=== PATIENT | male | born 1955 | race Caucasian/White ===

== ENCOUNTER 2016-05-31 09:32 | Inpatient (IN) | payer OTHER ==
[~2016-05-31] VITALS: Ht 182.9 cm; Wt 134.2 kg
[~2016-05-31 09:32] MED LIST: ADVAIR 250/501 DISK IH; AMBIEN10 M1 PO; ATORVASTATIN CA40 MG PO; ATROVENT H200 INHALA IH; CARDIZEM CD,CA180 MG PO; CARDIZEM CD240 MG PO; CARTIA XT240 MG PO; COMBIVENT200 INHALA IH; COUMADIN,JANTOVE5 MG PO; COUMADIN3 MG PO; COUMADIN5 MG PO; CYANOCOBALAM1000 MCG PO; Cardizem CD,Cartia X PO; DESYREL100 MG PO; DIGOXIN250 MCG PO; DOCUSATE SODIU100 MG PO; ENALAPRIL MALEA20 M1 PO; ENALAPRIL MALEA20 MG PO; FLOMAX0.4 MG PO; FLUCONAZOLE100 MG PO; FUROSEMIDE20 MG PO; GEMFIBROZIL600 MG PO; GLUCOPHAGE1000 MG PO; GLYNASE6 MG PO; HALOBETASOL PRO15 GM TP; HYDROCODON-ACE1 EAC7 PO; HYDROCODON-ACE1 EAC9 PO; KENALOG,ARISTOC15 G2 TP; LANOXIN,DIGI0.125 MG PO; LANTUS 10100 UNITS/ SC; LANTUS 3 M100 UNITS1 SC; LASIX40 MG PO; LEVAQUIN750 MG PO; LEVEMIR100 UNIT/2 SC; LIPITOR10 MG PO; LOVENOX40 MG/0.4 SC; METFORMIN HCL500 MG PO; NEURONTIN300 MG PO; NOVOLOG 10100 UNITS/ SC; NOVOLOG MI100 UNIT/4 SC; NOVOLOG PE100 UNITS/ SC; PERCOCET 5/31 TABLET PO; PREDNISONE10 MG PO; WELLBUTRIN XL150 MG PO; ZOFRAN ODT4 MG PO; Zeasorb Antifungal T TP
[2016-05-31 10:18] LABS: HEMATOCRIT 31.3 % (38.0-50.0); MCH 35.5 PG (29.0-34.0); MCHC 35.1 G/DL (30.0-36.0); MEAN PLAT.VOLUME 9.1 uM^3 (9.0-12.4); PLATELET COUNT 160 K/uL (156-360); RBC DIS.WIDTH-CV 14.9 % (11.8-14.6); RBC DIS.WIDTH-SD 52.8 % (39-53)
[2016-05-31 10:24] LABS: CHLORIDE 91 mEq/L (99-109)
[2016-05-31 10:25] LABS: POTASSIUM 5.1 mEq/L (3.7-5.4); SODIUM 127 mEq/L (136-147); WHITE BLOOD COUNT 10.4 K/uL (4.1-10.2)
[2016-05-31 10:26] LABS: GLUCOSE 95 mg/dL (70-99)
[2016-05-31 10:27] LABS: ANION GAP 14 MEQ/L (2-14)
[2016-05-31 10:30] LABS: GFR ESTIMATE (CALCULATED) 13 mL/min/
[2016-05-31 10:31] LABS: UREA NITROGEN (BUN) 76 mg/dL (9-23)
[2016-05-31 10:36] LABS: TROP-I INTERPRETATION NEGATIVE; TROPONIN-I 0.05 ng/mL (0.0-0.30)
[2016-05-31] MEDS ORDERED: LIPITOR40 MG PO (11:38)
[2016-05-31] MEDS ORDERED: LASIX80 MG PO (11:40)
[2016-05-31] MEDS ORDERED: PRINIVIL20 MG PO (11:41)
[2016-05-31] MEDS ORDERED: ADVAIR 250/501 DISK IH (11:43)
[2016-05-31] MEDS ORDERED: HUMALOG100 UNIT/2 SC (11:48)
[2016-05-31] MEDS ORDERED: TUMS500 MG PO (11:52)
[2016-05-31] MEDS ORDERED: TYLENOL REGULA325 MG PO (11:53)
[2016-05-31] MEDS ORDERED: ZEASORB-AF70 G1 TP (11:57)
[2016-05-31 17:04] LABS: POINT-OF-CARE METER ID UU13113698; POINT-OF-CARE USER ID NUTSLF44
[2016-05-31 17:10] VITALS: BP 102/44
[2016-05-31 17:23] LABS: INTER. NORMALIZED RATIO 2.7; PROTHROMBIN TIME 28.1 (9.2-11.2)
[2016-05-31 19:22] VITALS: BP 93/52
[2016-05-31 22:11] LABS: POINT-OF-CARE METER ID UU13113698
[2016-05-31 23:49] VITALS: BP 98/54
[2016-06-01 03:16] VITALS: BP 95/50
[2016-06-01 07:07] LABS: EOSINOPHIL (%) 1.3 % (0-5); EOSINOPHIL COUNT 0.1 K/uL (0-0.3); HEMATOCRIT 29.3 % (38.0-50.0); IMMATURE GRANULOCYTE (%) 0.3 % (0.0-0.7); IMMATURE GRANULOCYTE COUNT 0.2 K/uL; LYMPHOCYTE COUNT 0.8 K/uL (1.0-2.8); MCH 35.5 PG (29.0-34.0); MCHC 35.2 G/DL (30.0-36.0); MONOCYTE (%) 5.3 % (3-12); MONOCYTE COUNT 0.3 K/uL (0-0.8); NEUTROPHIL (%) 79.9 % (45-76); NEUTROPHIL COUNT 4.9 K/uL (1.8-6.4); RBC DIS.WIDTH-CV 14.8 % (11.8-14.6); RBC DIS.WIDTH-SD 52.4 % (39-53)
[2016-06-01 07:15] VITALS: BP 96/53
[2016-06-01 07:16] LABS: MEAN PLAT.VOLUME 9.1 uM^3 (9.0-12.4); PLATELET COUNT 144 K/uL (156-360)
[2016-06-01 07:21] LABS: WHITE BLOOD COUNT 6.1 K/uL (4.1-10.2)
[2016-06-01 07:48] LABS: ALKALINE PHOSPHATASE 83 IU/L (3-129); ANION GAP 12 MEQ/L (2-14); CHLORIDE 99 MEQ/L (99-109); GLUCOSE 73 mg/dL (70-99); MAGNESIUM 1.6 mg/dl (1.3-2.7); POTASSIUM 4.1 MEQ/L (3.7-5.4); SAMPLE HEMOLYSIS CHECK 0; SAMPLE ICTERIC CHECK 0; SAMPLE LIPEMIA CHECK 0; UREA NITROGEN (BUN) 67 mg/dL (9-23)
[2016-06-01 07:57] LABS: GFR ESTIMATE (CALCULATED) 31 mL/min/; SODIUM 136 MEQ/L (136-147); VANCOMYCIN, TROUGH 11.3 MCG/ML (10-20)
[2016-06-01 07:59] LABS: INTER. NORMALIZED RATIO 3.3; PROTHROMBIN TIME 35.4 (9.2-11.2)
[2016-06-01 11:30] VITALS: BP 125/59
[2016-06-01 12:22] LABS: POINT-OF-CARE METER ID UU13113698
[2016-06-01 15:30] VITALS: BP 126/64
[2016-06-01 19:00] VITALS: BP 129/59
[2016-06-01 23:46] VITALS: BP 139/70
[2016-06-02 02:22] VITALS: BP 137/72
[2016-06-02 06:35] LABS: MEAN PLAT.VOLUME 9.5 uM^3 (9.0-12.4); PLATELET COUNT 153 K/uL (156-360)
[2016-06-02 06:45] LABS: EOSINOPHIL (%) 0.9 % (0-5); IMMATURE GRANULOCYTE (%) 0.9 % (0.0-0.7); LYMPHOCYTE COUNT 0.5 K/uL (1.0-2.8); MCH 33.7 PG (29.0-34.0); MCHC 32.9 G/DL (30.0-36.0); MCV 102.3 FL (86-99); MONOCYTE (%) 7.3 % (3-12); MONOCYTE COUNT 0.3 K/uL (0-0.8); NEUTROPHIL (%) 79.6 % (45-76); NEUTROPHIL COUNT 3.6 K/uL (1.8-6.4); RBC DIS.WIDTH-CV 14.8 % (11.8-14.6); RBC DIS.WIDTH-SD 54.6 % (39-53); RED BLOOD COUNT 3.03 M/uL (4.00-5.50); WHITE BLOOD COUNT 4.5 K/uL (4.1-10.2)
[2016-06-02 06:49] LABS: INTER. NORMALIZED RATIO 2.6; PROTHROMBIN TIME 26.9 (9.2-11.2)
[2016-06-02 07:13] LABS: ANION GAP 12 MEQ/L (2-14); CHLORIDE 103 MEQ/L (99-109); MAGNESIUM 1.6 mg/dl (1.3-2.7); POTASSIUM 4.1 MEQ/L (3.7-5.4); SAMPLE HEMOLYSIS CHECK 0; SAMPLE ICTERIC CHECK 0; SAMPLE LIPEMIA CHECK 0; SODIUM 140 MEQ/L (136-147); UREA NITROGEN (BUN) 40 mg/dL (9-23)
[2016-06-02 07:16] LABS: GFR ESTIMATE (CALCULATED) > 59 mL/min/; GLUCOSE 130 mg/dL (70-99)
[2016-06-02 07:43] LABS: HEMATOLOGY COMMENT 1 SMEAR COMPATIBLE; PLAT.SUFFICIENCY ADEQUATE
[2016-06-02 08:08] LABS: DIGOXIN 0.8 ng/mL (0.8-2.0)
[2016-06-02 10:10] VITALS: BP 95/55
[2016-06-02 12:39] VITALS: BP 115/67
[2016-06-02 16:55] VITALS: BP 138/85
[2016-06-02 20:01] VITALS: BP 143/65
[2016-06-02 23:10] VITALS: BP 137/82
[2016-06-03 04:41] VITALS: BP 135/70
[2016-06-03 07:09] LABS: PROTHROMBIN TIME 20.7 (9.2-11.2)
[2016-06-03 07:20] VITALS: BP 152/73
[2016-06-03 07:35] LABS: POINT-OF-CARE USER ID ENVKC36
[2016-06-03 10:00] VITALS: BP 96/65
[2016-06-03 12:16] LABS: POINT-OF-CARE METER ID UU13113725
[2016-06-03 15:27] VITALS: BP 161/74
[2016-06-03 16:12] LABS: POINT-OF-CARE METER ID UU13113725
[2016-06-03 21:24] LABS: POINT-OF-CARE METER ID UU13113725
[2016-06-03 22:57] VITALS: BP 140/75
[2016-06-04 06:04] LABS: POINT-OF-CARE METER ID UU13113717
[2016-06-04 06:17] LABS: INTER. NORMALIZED RATIO 1.9; PROTHROMBIN TIME 20.2 (9.2-11.2)
[2016-06-04 07:40] VITALS: BP 90/48
[2016-06-04 16:27] LABS: POINT-OF-CARE METER ID UU13113717
[2016-06-04 16:32] VITALS: BP 156/72
[2016-06-04 21:31] LABS: POINT-OF-CARE METER ID UU13113725
[2016-06-04 23:30] VITALS: BP 158/86
[2016-06-05 06:30] LABS: POINT-OF-CARE METER ID UU13113725
[2016-06-05 06:48] LABS: INTER. NORMALIZED RATIO 2.2; PROTHROMBIN TIME 22.8 (9.2-11.2)
[2016-06-05 08:44] VITALS: BP 165/96
[2016-06-05 11:31] LABS: POINT-OF-CARE METER ID UU13113717
[2016-06-05 16:21] VITALS: BP 133/71
[2016-06-05 16:32] LABS: POINT-OF-CARE METER ID UU13113725
[2016-06-05 20:39] VITALS: BP 132/77
[2016-06-05 23:35] VITALS: BP 143/79
[2016-06-06 06:23] LABS: POINT-OF-CARE METER ID UU13113725
[2016-06-06 06:34] LABS: PROTHROMBIN TIME 21.1 (9.2-11.2)
[2016-06-06 07:16] VITALS: BP 150/70
[2016-06-06 11:54] LABS: POINT-OF-CARE METER ID UU13113725
[2016-06-06] MEDS ORDERED: DIGOX250 MCG PO (15:12)
[2016-06-06 15:13] VITALS: BP 118/78
[2016-06-06] MEDS ORDERED: COUMADIN3 MG PO (15:13)
[2016-06-06] MEDS ORDERED: CARTIA XT240 MG PO (15:14)
[2016-06-06] MEDS ORDERED: LISINOPRIL5 MG PO (15:16)
[2016-06-06] MEDS ORDERED: CEFTIN500 MG PO (15:17)
[2016-06-06 15:46] LABS: POINT-OF-CARE METER ID UU13113725
== END 2016-06-06 17:59 | DRG 871 ==
LOC: EME 09:32 → 4EAST 14:00 → EDOF 14:00 → 5EAST 14:00 → EDOF 14:09 → 4EAST 16:21 → 5EAST 06-03 09:55
PROVIDERS: Emergency Medicine; Internal Medicine; Internal Medicine Nephrology
DX: A41.9 Sepsis, unspecified organism (principal); J18.9 Pneumonia, unspecified organism; N17.0 Acute kidney failure with tubular necrosis; I50.30 Unspecified diastolic (congestive) heart failure; J44.0 Chronic obstructive pulmonary disease with (acute) lower respiratory infection; E87.2 Acidosis; Z68.41 Body mass index [BMI] 40.0-44.9, adult; E87.1 Hypo-osmolality and hyponatremia; I48.2 Chronic atrial fibrillation; E11.9 Type 2 diabetes mellitus without complications; E66.01 Morbid (severe) obesity due to excess calories; G47.33 Obstructive sleep apnea (adult) (pediatric); I95.9 Hypotension, unspecified; F32.9 Major depressive disorder, single episode, unspecified; M25.552 Pain in left hip; M25.551 Pain in right hip; Z87.891 Personal history of nicotine dependence; Z79.01 Long term (current) use of anticoagulants; Z79.4 Long term (current) use of insulin; Z88.1 Allergy status to other antibiotic agents; Z88.2 Allergy status to sulfonamides
CPT/HCPCS: 71010; 76770; 80048; 80053; 80069; 80162; 80202; 81003; 82533 91; 82570; 82948; 83605; 83735; 83880; 83935; 84100; 84156; 84300; 84484; 84550; 85025; 85027; 85610; 87040; 93005; 93306; 94640; 94640 76; 94799; 97530 GO; 97530 GP; 99202; 99281; 99285; J0456; J0696; J1720; J1815; J2543; J2920; J3370; J7030; J7050; J7512

== ENCOUNTER 2016-10-29 11:05 | Inpatient (IN) | payer OTHER ==
[~2016-10-29] VITALS: Ht 182.9 cm; Wt 118.9 kg
[~2016-10-29 11:05] MED LIST changes: +CEFTIN500 MG PO; +DIGOX250 MCG PO; +HUMALOG100 UNIT/2 SC; +LASIX80 MG PO; +LIPITOR40 MG PO; +LISINOPRIL5 MG PO; +PRINIVIL20 MG PO; +TUMS500 MG PO; +TYLENOL REGULA325 MG PO; +ZEASORB-AF70 G1 TP
[2016-10-29 13:36] LABS: ADD MIUA? YES; BILIRUBIN NEGATIVE; BLOOD MODERATE; COLOR YELLOW ((YELLOW)); GLUCOSE (STRIP) NEGATIVE; KETONES NEGATIVE; LEUKOCYTES LARGE; NITRITE POSITIVE; PROTEIN (STRIP) 30; SPECIFIC GRAVITY 1.013 (1.000-1.030)
[2016-10-29 13:50] LABS: BACTERIA RARE /HPF; EPITHELIAL CELLS 1+ /HPF; MUCUS TRACE /LPF; RED BLOOD CELLS 15-20 /HPF (0-5); UCUL ADDED? YES; WHITE BLOOD CELLS TNTC /HPF (0-5)
[2016-10-29 14:01] LABS: HEMATOCRIT 36.4 % (38.0-50.0); MCHC 33.8 G/DL (30.0-36.0); MCV 103.7 FL (86-99); PLATELET COUNT 127 K/uL (156-360); RBC DIS.WIDTH-CV 14.1 % (11.8-14.6); RBC DIS.WIDTH-SD 53.6 % (39-53); RED BLOOD COUNT 3.51 M/uL (4.00-5.50); WHITE BLOOD COUNT 9.9 K/uL (4.1-10.2)
[2016-10-29 14:11] LABS: CHLORIDE 106 mEq/L (99-109); POTASSIUM 4.2 mEq/L (3.7-5.4); SODIUM 137 mEq/L (136-147)
[2016-10-29 14:13] LABS: GLUCOSE 104 mg/dL (70-99)
[2016-10-29 14:14] LABS: ANION GAP 9 MEQ/L (2-14)
[2016-10-29 14:16] LABS: GFR ESTIMATE (CALCULATED) > 59 mL/min/
[2016-10-29 14:17] LABS: UREA NITROGEN (BUN) 26 mg/dL (9-23)
[2016-10-29] MEDS ORDERED: COUMADIN6 MG PO (15:53)
[2016-10-29] MEDS ORDERED: CARDIZEM CD,CA240 MG PO ×2 (15:54→17:18)
[2016-10-29] MEDS ORDERED: HYDROCODON-ACE1 EAC9 PO (15:55)
[2016-10-29] MEDS ORDERED: TRAZODONE HCL50 MG PO (15:56)
[2016-10-29 16:31] LABS: INTER. NORMALIZED RATIO 3.2; PROTHROMBIN TIME 34.1 (9.2-11.2)
[2016-10-29] MEDS ORDERED: DIGITEK250 MC2 PO (17:18)
[2016-10-29] MEDS ORDERED: PRINIVIL5 MG PO (17:19)
[2016-10-29] MEDS ORDERED: FOLIC ACID1 MG PO (17:19)
[2016-10-29] MEDS ORDERED: DULCOLAX10 MG PR (17:22)
[2016-10-29] MEDS ORDERED: FLEET MINERAL133 ML PR (17:23)
[2016-10-29] MEDS ORDERED: MILK OF MAGN PO (17:23)
[2016-10-29 18:35] VITALS: BP 127/60
[2016-10-29 18:54] LABS: POINT-OF-CARE METER ID UU14162508
[2016-10-29 20:42] VITALS: BP 132/73
[2016-10-29 22:16] LABS: POINT-OF-CARE METER ID UU14162508
[2016-10-30] VITALS (8 sets, daily range): BP systolic 101–126; BP diastolic 57–82
[2016-10-30 06:45] LABS: POINT-OF-CARE METER ID UU14162508
[2016-10-30 06:47] LABS: INTER. NORMALIZED RATIO 3.2; PROTHROMBIN TIME 33.4 (9.2-11.2)
[2016-10-30 11:05] LABS: POINT-OF-CARE METER ID UU14162508
[2016-10-30 13:28] LABS: POINT-OF-CARE METER ID UU13113675; POINT-OF-CARE USER ID 515036437
[2016-10-30 16:29] LABS: POINT-OF-CARE METER ID UU14162508; POINT-OF-CARE USER ID PUTDRM
[2016-10-31 07:30] LABS: INTER. NORMALIZED RATIO 2.8; PROTHROMBIN TIME 29.3 (9.2-11.2)
[2016-10-31 09:15] VITALS: BP 114/56
[2016-10-31 12:00] VITALS: BP 112/58
[2016-10-31 16:00] VITALS: BP 116/64
[2016-11-01 00:02] VITALS: BP 121/62
[2016-11-01 06:47] LABS: POINT-OF-CARE METER ID UU14162508
[2016-11-01 07:12] LABS: PROTHROMBIN TIME 20.6 (9.2-11.2)
[2016-11-01 08:00] VITALS: BP 138/87
[2016-11-01 16:00] VITALS: BP 167/94
[2016-11-01 21:14] LABS: POINT-OF-CARE METER ID UU14162508
[2016-11-02 07:10] VITALS: BP 139/84
[2016-11-02 07:13] LABS: INTER. NORMALIZED RATIO 2.3; PROTHROMBIN TIME 23.6 (9.2-11.2)
[2016-11-02 07:19] LABS: ANION GAP 6 MEQ/L (2-14); CHLORIDE 105 MEQ/L (99-109); GFR ESTIMATE (CALCULATED) > 59 mL/min/; GLUCOSE 74 mg/dL (70-99); POTASSIUM 3.6 MEQ/L (3.7-5.4); SAMPLE HEMOLYSIS CHECK 0; SAMPLE ICTERIC CHECK 0; SAMPLE LIPEMIA CHECK 0; SODIUM 139 MEQ/L (136-147); UREA NITROGEN (BUN) 16 mg/dL (9-23)
[2016-11-02 08:14] LABS: POINT-OF-CARE METER ID UU14162508
[2016-11-02 11:31] LABS: POINT-OF-CARE METER ID UU14162508
[2016-11-02 16:39] VITALS: BP 125/81
[2016-11-03 00:41] VITALS: BP 154/79
[2016-11-03 07:19] LABS: INTER. NORMALIZED RATIO 2.4; PROTHROMBIN TIME 25.6 (9.2-11.2)
[2016-11-03 08:01] VITALS: BP 133/88
[2016-11-03] MEDS ORDERED: CIPRO500 MG PO (08:30)
== END 2016-11-03 12:15 | DRG 872 ==
LOC: EME 11:05 → EDOF 15:30 → 2EAST 15:30
PROVIDERS: Emergency Medicine; Internal Medicine
DX: A41.59 Other Gram-negative sepsis (principal); E11.622 Type 2 diabetes mellitus with other skin ulcer; I11.0 Hypertensive heart disease with heart failure; I50.32 Chronic diastolic (congestive) heart failure; E66.01 Morbid (severe) obesity due to excess calories; G47.33 Obstructive sleep apnea (adult) (pediatric); I48.2 Chronic atrial fibrillation; L97.909 Non-pressure chronic ulcer of unspecified part of unspecified lower leg with unspecified severity; J44.9 Chronic obstructive pulmonary disease, unspecified; N13.6 Pyonephrosis; N30.90 Cystitis, unspecified without hematuria; N47.1 Phimosis; Z68.35 Body mass index [BMI] 35.0-35.9, adult; Z79.01 Long term (current) use of anticoagulants; Z87.442 Personal history of urinary calculi; Z87.891 Personal history of nicotine dependence; R45.4 Irritability and anger; I87.2 Venous insufficiency (chronic) (peripheral); L89.899 Pressure ulcer of other site, unspecified stage
CPT/HCPCS: 74000; 74176; 80048; 81003; 82948; 85027; 85610; 87040; 87077; 87086; 87186; 87801; 94640 76; 97530 GP; 99281; 99285; C1769; C1876; J0696; J1100; J1815; J2250; J2405; J3010; J7030; J7050

== ENCOUNTER → 2016-11-20 | Outpatient (CLI) | payer OTHER ==
[~2016-11-20] VITALS: Ht 177.8 cm; Wt 116.6 kg
[~2016-11-20] MED LIST changes: +CARDIZEM CD,CA240 MG PO; +CIPRO500 MG PO; +COUMADIN6 MG PO; +DIGITEK250 MC2 PO; +DULCOLAX10 MG PR; +FLEET MINERAL133 ML PR; +FOLIC ACID1 MG PO; +MILK OF MAGN PO; +NIZORAL 2% CREA15 GM TP; +OLUX-E 0.05% FO50 GM TP; +PRINIVIL5 MG PO; +TRAZODONE HCL50 MG PO; +VITAMIN B-122000 MCG PO
[2016-11-20 08:39] LABS: POINT-OF-CARE METER ID UU14174212
[2016-11-20 09:10] LABS: INTER. NORMALIZED RATIO 1.5; PROTHROMBIN TIME 15.7 (9.2-11.2); PTT 29.3 (25-32)
== END ==
LOC: AMB 07:29
PROVIDERS: Anesthesiology; Urology
PROC: 0TF6XZZ Fragmentation in Right Ureter, External Approach (ICD-10-PCS; principal; 2016-11-20)
DX: N20.1 Calculus of ureter (principal); I48.91 Unspecified atrial fibrillation; I10 Essential (primary) hypertension; E11.9 Type 2 diabetes mellitus without complications; Z79.01 Long term (current) use of anticoagulants
CPT/HCPCS: 82948; 85610; 85730; J0696; J1100; J1170; J1885; J2250; J2405; J7050; J7120

== ENCOUNTER 2016-12-01 19:01 | Inpatient (IN) | payer OTHER ==
[~2016-12-01] VITALS: Ht 182.9 cm; Wt 101.2 kg
[2016-12-01 21:24] LABS: EOSINOPHIL (%) 1.6 % (0-5); EOSINOPHIL COUNT 0.1 K/uL (0-0.3); HEMATOCRIT 28.1 % (38.0-50.0); IMMATURE GRANULOCYTE (%) 0.7 % (0.0-0.7); INSTRUMENT ABS NEUTROPHIL CT 4.3 K/uL; LYMPHOCYTE COUNT 0.8 K/uL (1.0-2.8); MCH 33.7 PG (29.0-34.0); MCHC 32.7 G/DL (30.0-36.0); MEAN PLAT.VOLUME 8.8 uM^3 (9.0-12.4); MONOCYTE (%) 5.9 % (3-12); MONOCYTE COUNT 0.3 K/uL (0-0.8); NEUTROPHIL (%) 77.2 % (45-76); NEUTROPHIL COUNT 4.3 K/uL (1.8-6.4); PLATELET COUNT 243 K/uL (156-360); RBC DIS.WIDTH-CV 14.2 % (11.8-14.6); RBC DIS.WIDTH-SD 53.4 % (39-53); RED BLOOD COUNT 2.73 M/uL (4.00-5.50); WHITE BLOOD COUNT 5.6 K/uL (4.1-10.2)
[2016-12-01 21:29] LABS: MCV 102.9 FL (86-99)
[2016-12-01 21:34] LABS: CHLORIDE 102 mEq/L (99-109); POTASSIUM 4.8 mEq/L (3.7-5.4); SODIUM 134 mEq/L (136-147)
[2016-12-01 21:35] LABS: GLUCOSE 110 mg/dL (70-99)
[2016-12-01 21:36] LABS: ANION GAP 10 MEQ/L (2-14)
[2016-12-01 21:37] LABS: TOTAL BILIRUBIN 1.3 mg/dL (0.0-1.0)
[2016-12-01 21:38] LABS: ALKALINE PHOSPHATASE 280 IU/L (3-129); GFR ESTIMATE (CALCULATED) > 59 mL/min/
[2016-12-01 21:40] LABS: UREA NITROGEN (BUN) 26 mg/dL (9-23)
[2016-12-01 21:49] LABS: INTER. NORMALIZED RATIO 2.1; PROTHROMBIN TIME 22.4 (9.2-11.2)
[2016-12-02 01:18] VITALS: BP 125/71
[2016-12-02 02:17] LABS: ADD MIUA? YES; BILIRUBIN NEGATIVE; BLOOD MODERATE; COLOR YELLOW ((YELLOW)); GLUCOSE (STRIP) NEGATIVE; KETONES NEGATIVE; LEUKOCYTES LARGE; NITRITE POSITIVE; PROTEIN (STRIP) 30; SPECIFIC GRAVITY 1.013 (1.000-1.030)
[2016-12-02 02:59] LABS: BACTERIA 3+ /HPF; CASTS NONE SEEN /LPF; CRYSTALS NONE SEEN; EPITHELIAL CELLS RARE /HPF; MUCUS NONE SEEN /LPF; RED BLOOD CELLS 0-5 /HPF (0-5); UCUL ADDED? YES; WHITE BLOOD CELLS TNTC /HPF (0-5)
[2016-12-02 07:12] LABS: ALKALINE PHOSPHATASE 245 IU/L (3-129); ANION GAP 7 MEQ/L (2-14); CHLORIDE 102 MEQ/L (99-109); GFR ESTIMATE (CALCULATED) > 59 mL/min/; MAGNESIUM 1.8 mg/dl (1.3-2.7); POTASSIUM 4.4 MEQ/L (3.7-5.4); SAMPLE HEMOLYSIS CHECK 0; SAMPLE ICTERIC CHECK 0; SAMPLE LIPEMIA CHECK 0; SODIUM 136 MEQ/L (136-147); TOTAL BILIRUBIN 1.3 MG/DL (0.0-1.0); UREA NITROGEN (BUN) 22 mg/dL (9-23)
[2016-12-02 07:31] LABS: GLUCOSE 74 mg/dL (70-99)
[2016-12-02 07:32] LABS: HEMATOCRIT 28.1 % (38.0-50.0); MCV 105.6 FL (86-99)
[2016-12-02 08:29] VITALS: BP 125/68
[2016-12-02 11:42] LABS: IMM.RETIC FRACTION 9.7 % (3-19); RETICULOCYTE COUNT 1.4 % (0.5-1.8)
[2016-12-02 12:13] LABS: HBSG INDEX 0.22; HPCA INDEX 0.26
[2016-12-02 12:14] LABS: ANTI-HEPATITIS A VIRUS (IGM) Nonreactive; HAV INDEX 0.14
[2016-12-02 12:15] LABS: ANTI-HEPATITIS B CORE (IGM) Nonreactive; HBC IgM INDEX 0.09
[2016-12-02 12:37] LABS: IRON 57 MCG/DL (35-150)
[2016-12-02 13:53] LABS: FERRITIN 434 NG/ML (22-322)
[2016-12-02] MEDS ORDERED: CYANOCOBALAM1000 MCG PO (14:20)
[2016-12-02 14:31] VITALS: BP 116/56
[2016-12-02 18:07] LABS: MCV 105.3 FL (86-99)
[2016-12-02 20:03] VITALS: BP 117/52
[2016-12-02 23:57] VITALS: BP 129/81
[2016-12-03 06:11] LABS: HEMATOCRIT 26.8 % (38.0-50.0); MCH 33.5 PG (29.0-34.0); MCHC 31.7 G/DL (30.0-36.0); MCV 105.5 FL (86-99); MEAN PLAT.VOLUME 8.8 uM^3 (9.0-12.4); PLATELET COUNT 232 K/uL (156-360); RBC DIS.WIDTH-CV 14.2 % (11.8-14.6); RBC DIS.WIDTH-SD 55.3 % (39-53); RED BLOOD COUNT 2.54 M/uL (4.00-5.50); WHITE BLOOD COUNT 4.9 K/uL (4.1-10.2)
[2016-12-03 06:32] LABS: ALKALINE PHOSPHATASE 226 IU/L (3-129); ANION GAP 7 MEQ/L (2-14); CHLORIDE 102 MEQ/L (99-109); GFR ESTIMATE (CALCULATED) > 59 mL/min/; GLUCOSE 89 mg/dL (70-99); POTASSIUM 4.6 MEQ/L (3.7-5.4); SAMPLE HEMOLYSIS CHECK 0; SAMPLE ICTERIC CHECK 0; SAMPLE LIPEMIA CHECK 0; SODIUM 135 MEQ/L (136-147); TOTAL BILIRUBIN 1.2 MG/DL (0.0-1.0); UREA NITROGEN (BUN) 17 mg/dL (9-23)
[2016-12-03 08:00] VITALS: BP 142/60
[2016-12-03 08:44] LABS: POINT-OF-CARE METER ID UU14188625
[2016-12-03 10:59] LABS: POINT-OF-CARE METER ID UU13113675; POINT-OF-CARE USER ID ADMSLT55
[2016-12-03 12:00] VITALS: BP 146/57
[2016-12-03 12:09] LABS: POINT-OF-CARE METER ID UU14188625
[2016-12-03 16:24] VITALS: BP 119/50
[2016-12-03 16:48] LABS: POINT-OF-CARE METER ID UU13113717
[2016-12-03 21:08] VITALS: BP 122/65
[2016-12-03 22:08] LABS: POINT-OF-CARE METER ID UU13113717
[2016-12-04 00:20] VITALS: BP 121/64
[2016-12-04 05:58] LABS: EOSINOPHIL (%) 0.3 % (0-5); HEMATOCRIT 26.4 % (38.0-50.0); IMMATURE GRANULOCYTE (%) 0.6 % (0.0-0.7); INSTRUMENT ABS NEUTROPHIL CT 5.6 K/uL; LYMPHOCYTE COUNT 0.6 K/uL (1.0-2.8); MCH 34.4 PG (29.0-34.0); MCV 104.3 FL (86-99); MONOCYTE (%) 4.5 % (3-12); MONOCYTE COUNT 0.3 K/uL (0-0.8); NEUTROPHIL (%) 85.8 % (45-76); NEUTROPHIL COUNT 5.6 K/uL (1.8-6.4); PLATELET COUNT 244 K/uL (156-360); RBC DIS.WIDTH-CV 14.2 % (11.8-14.6); RBC DIS.WIDTH-SD 54.4 % (39-53); RED BLOOD COUNT 2.53 M/uL (4.00-5.50); WHITE BLOOD COUNT 6.5 K/uL (4.1-10.2)
[2016-12-04 06:23] LABS: ALKALINE PHOSPHATASE 240 IU/L (3-129); ANION GAP 8 MEQ/L (2-14); CHLORIDE 104 MEQ/L (99-109); GFR ESTIMATE (CALCULATED) > 59 mL/min/; GLUCOSE 128 mg/dL (70-99); POTASSIUM 4.3 MEQ/L (3.7-5.4); SAMPLE HEMOLYSIS CHECK 0; SAMPLE ICTERIC CHECK 0; SAMPLE LIPEMIA CHECK 0; SODIUM 135 MEQ/L (136-147); UREA NITROGEN (BUN) 19 mg/dL (9-23)
[2016-12-04 07:39] VITALS: BP 134/80
[2016-12-04 08:18] LABS: POINT-OF-CARE METER ID UU14188625
[2016-12-04 09:35] LABS: INTER. NORMALIZED RATIO 1.9; PTT 31.8 (25-32)
[2016-12-04 10:43] LABS: HPCA INDEX 0.28
[2016-12-04 12:03] VITALS: BP 120/65
[2016-12-04 12:40] LABS: POINT-OF-CARE METER ID UU14188625
[2016-12-04 14:09] LABS: POINT-OF-CARE METER ID UU14174212
[2016-12-04 15:17] LABS: POINT-OF-CARE METER ID UU13113675
[2016-12-04 16:05] VITALS: BP 140/64
[2016-12-04 16:18] LABS: POINT-OF-CARE METER ID UU13113717
[2016-12-04 19:52] VITALS: BP 113/56
[2016-12-04 23:41] VITALS: BP 132/67
[2016-12-05 04:13] VITALS: BP 111/57
[2016-12-05 05:48] LABS: EOSINOPHIL (%) 1.7 % (0-5); EOSINOPHIL COUNT 0.1 K/uL (0-0.3); IMMATURE GRANULOCYTE (%) 0.2 % (0.0-0.7); MCH 33.6 PG (29.0-34.0); MCHC 31.9 G/DL (30.0-36.0); MCV 105.3 FL (86-99); MEAN PLAT.VOLUME 9.1 uM^3 (9.0-12.4); MONOCYTE (%) 4.5 % (3-12); MONOCYTE COUNT 0.2 K/uL (0-0.8); NEUTROPHIL (%) 74.8 % (45-76); PLATELET COUNT 242 K/uL (156-360); RBC DIS.WIDTH-CV 14.1 % (11.8-14.6); RBC DIS.WIDTH-SD 54.5 % (39-53); RED BLOOD COUNT 2.47 M/uL (4.00-5.50); WHITE BLOOD COUNT 5.3 K/uL (4.1-10.2)
[2016-12-05 06:15] LABS: ALKALINE PHOSPHATASE 216 IU/L (3-129); ANION GAP 7 MEQ/L (2-14); CHLORIDE 107 MEQ/L (99-109); GFR ESTIMATE (CALCULATED) > 59 mL/min/; GLUCOSE 86 mg/dL (70-99); POTASSIUM 4.5 MEQ/L (3.7-5.4); SAMPLE HEMOLYSIS CHECK 1; SAMPLE ICTERIC CHECK 0; SAMPLE LIPEMIA CHECK 0; SODIUM 137 MEQ/L (136-147); TOTAL BILIRUBIN 0.8 MG/DL (0.0-1.0); UREA NITROGEN (BUN) 19 mg/dL (9-23)
[2016-12-05 07:48] VITALS: BP 128/60
[2016-12-05 11:54] VITALS: BP 115/59
[2016-12-05 12:07] LABS: POINT-OF-CARE METER ID UU14188625
[2016-12-05 15:52] VITALS: BP 127/61
[2016-12-05 16:46] LABS: POINT-OF-CARE METER ID UU14188625
[2016-12-05 19:59] VITALS: BP 120/67
[2016-12-05 21:12] LABS: POINT-OF-CARE METER ID UU13113717
[2016-12-05 23:36] VITALS: BP 141/62
[2016-12-06 04:17] VITALS: BP 128/63
[2016-12-06 05:55] LABS: EOSINOPHIL (%) 3.2 % (0-5); EOSINOPHIL COUNT 0.2 K/uL (0-0.3); HEMATOCRIT 26.8 % (38.0-50.0); IMMATURE GRANULOCYTE (%) 0.4 % (0.0-0.7); INSTRUMENT ABS NEUTROPHIL CT 3.2 K/uL; LYMPHOCYTE COUNT 1.1 K/uL (1.0-2.8); MCH 34.4 PG (29.0-34.0); MCHC 32.5 G/DL (30.0-36.0); MCV 105.9 FL (86-99); MEAN PLAT.VOLUME 8.8 uM^3 (9.0-12.4); MONOCYTE (%) 5.1 % (3-12); MONOCYTE COUNT 0.2 K/uL (0-0.8); NEUTROPHIL (%) 67.2 % (45-76); NEUTROPHIL COUNT 3.2 K/uL (1.8-6.4); PLATELET COUNT 242 K/uL (156-360); RBC DIS.WIDTH-CV 14.3 % (11.8-14.6); RBC DIS.WIDTH-SD 55.3 % (39-53); RED BLOOD COUNT 2.53 M/uL (4.00-5.50); WHITE BLOOD COUNT 4.7 K/uL (4.1-10.2)
[2016-12-06 07:01] LABS: ALKALINE PHOSPHATASE 229 IU/L (3-129); ANION GAP 6 MEQ/L (2-14); CHLORIDE 106 MEQ/L (99-109); GFR ESTIMATE (CALCULATED) > 59 mL/min/; GLUCOSE 86 mg/dL (70-99); POTASSIUM 4.4 MEQ/L (3.7-5.4); SAMPLE HEMOLYSIS CHECK 0; SAMPLE ICTERIC CHECK 0; SAMPLE LIPEMIA CHECK 0; SODIUM 141 MEQ/L (136-147); TOTAL BILIRUBIN 0.7 MG/DL (0.0-1.0); UREA NITROGEN (BUN) 22 mg/dL (9-23)
[2016-12-06 07:37] LABS: POINT-OF-CARE METER ID UU14188625
[2016-12-06 08:21] VITALS: BP 144/71
[2016-12-06 12:02] VITALS: BP 120/59
[2016-12-06 12:08] LABS: POINT-OF-CARE METER ID UU14188625
[2016-12-06 16:14] VITALS: BP 145/63
[2016-12-06 19:39] VITALS: BP 148/69
[2016-12-06 21:23] LABS: POINT-OF-CARE METER ID UU14174225
[2016-12-06 23:44] VITALS: BP 135/71
[2016-12-07] VITALS (7 sets, daily range): BP systolic 85–141; BP diastolic 51–69
[2016-12-07 06:35] LABS: ANION GAP 8 MEQ/L (2-14); CHLORIDE 107 MEQ/L (99-109); POTASSIUM 4.6 MEQ/L (3.7-5.4); SAMPLE HEMOLYSIS CHECK 1; SAMPLE ICTERIC CHECK 0; SAMPLE LIPEMIA CHECK 0; SODIUM 139 MEQ/L (136-147); TOTAL BILIRUBIN 0.7 MG/DL (0.0-1.0)
[2016-12-07 06:40] LABS: ALKALINE PHOSPHATASE 218 IU/L (3-129); GFR ESTIMATE (CALCULATED) > 59 mL/min/; GLUCOSE 84 mg/dL (70-99); UREA NITROGEN (BUN) 19 mg/dL (9-23)
[2016-12-07 07:18] LABS: HEMATOCRIT 27.3 % (38.0-50.0); MCHC 34.4 G/DL (30.0-36.0); MCV 104.6 FL (86-99); NRBC (%) 1.5 /100 WBC (0-0); RBC DIS.WIDTH-CV 14.4 % (11.8-14.6); RBC DIS.WIDTH-SD 54.9 % (39-53); RED BLOOD COUNT 2.61 M/uL (4.00-5.50); WHITE BLOOD COUNT 4.8 K/uL (4.1-10.2)
[2016-12-07 07:37] LABS: EOSINOPHIL (%) 4.4 % (0-5); EOSINOPHIL COUNT 0.2 K/uL (0-0.3); IMMATURE GRANULOCYTE (%) 0.8 % (0.0-0.7); INSTRUMENT ABS NEUTROPHIL CT 2.9 K/uL; LYMPHOCYTE COUNT 1.3 K/uL (1.0-2.8); MONOCYTE (%) 7.1 % (3-12); MONOCYTE COUNT 0.3 K/uL (0-0.8); NEUTROPHIL (%) 60.5 % (45-76); NEUTROPHIL COUNT 2.9 K/uL (1.8-6.4); PLAT.SUFFICIENCY ADEQUATE; PLATELET CLUMPS PRESENT - PLATELET COUNT APPEARS ADQ.; PLATELET COUNT UNABLE TO REPORT K/uL (156-360)
[2016-12-07 11:29] LABS: POINT-OF-CARE METER ID UU14188625
[2016-12-07 12:00] LABS: POINT-OF-CARE METER ID UU14188625
[2016-12-07 17:03] LABS: POINT-OF-CARE METER ID UU14188625
[2016-12-08 03:46] VITALS: BP 111/55
[2016-12-08 05:49] LABS: HEMATOCRIT 28.1 % (38.0-50.0); MCH 33.7 PG (29.0-34.0); MCV 105.2 FL (86-99); MEAN PLAT.VOLUME 8.6 uM^3 (9.0-12.4); PLATELET COUNT 239 K/uL (156-360); RBC DIS.WIDTH-CV 14.3 % (11.8-14.6); RBC DIS.WIDTH-SD 54.8 % (39-53); RED BLOOD COUNT 2.67 M/uL (4.00-5.50)
[2016-12-08 09:08] VITALS: BP 112/70
[2016-12-08 12:45] LABS: POINT-OF-CARE METER ID UU14188625
[2016-12-08 15:17] VITALS: BP 102/61
[2016-12-08 16:21] LABS: POINT-OF-CARE METER ID UU14188625
[2016-12-08 16:50] LABS: INTER. NORMALIZED RATIO 1.6; PROTHROMBIN TIME 18.1 SEC (10.2-12.9)
[2016-12-08 19:30] VITALS: BP 97/55
[2016-12-08 21:24] LABS: POINT-OF-CARE METER ID UU13113717
[2016-12-08 23:20] VITALS: BP 116/61
[2016-12-09 03:52] VITALS: BP 107/57
[2016-12-09 06:24] LABS: HEMATOCRIT 27.5 % (38.0-50.0); MCHC 31.3 G/DL (30.0-36.0); MCV 105.4 FL (86-99); MEAN PLAT.VOLUME 8.7 uM^3 (9.0-12.4); PLATELET COUNT 210 K/uL (156-360); RBC DIS.WIDTH-CV 14.5 % (11.8-14.6); RED BLOOD COUNT 2.61 M/uL (4.00-5.50); WHITE BLOOD COUNT 4.3 K/uL (4.1-10.2)
[2016-12-09 06:38] LABS: INTER. NORMALIZED RATIO 1.5; PROTHROMBIN TIME 16.5 SEC (10.2-12.9)
[2016-12-09 07:44] VITALS: BP 119/53
[2016-12-09] MEDS ORDERED: CEFEPIME HCL1 GM IM ×2 (11:01→11:33)
[2016-12-09] MEDS ORDERED: COUMADIN1 MG PO (11:07)
[2016-12-09] MEDS ORDERED: GABAPENTIN600 MG PO (11:07)
[2016-12-09] MEDS ORDERED: TAMSULOSIN HCL0.4 MG PO (11:07)
[2016-12-09] MEDS ORDERED: COUMADIN3 MG PO (11:07)
[2016-12-09] MEDS ORDERED: BACLOFEN10 MG PO (11:07)
[2016-12-09] MEDS ORDERED: CARDIZEM CD PO (11:07)
[2016-12-09] MEDS ORDERED: FENTANYL1 EAC5 TD (12:38)
[2016-12-09] MEDS ORDERED: HYDROCODON-ACE1 EAC9 PO (12:38)
== END 2016-12-09 13:54 | DRG 690 ==
LOC: EME → EDBD 19:01 → EDOF 23:23 → 5SOUTH 12-02 00:07 → EDOF 12-02 00:07 → 5SOUTH 12-02 01:02
PROVIDERS: Emergency Medicine; Hospitalist; Internal Medicine; Internal Medicine Gastroenterology; Physician Assistant Medical
DX: N13.6 Pyonephrosis (principal); N20.2 Calculus of kidney with calculus of ureter; E87.1 Hypo-osmolality and hyponatremia; E88.09 Other disorders of plasma-protein metabolism, not elsewhere classified; L89.152 Pressure ulcer of sacral region, stage 2; L89.322 Pressure ulcer of left buttock, stage 2; L89.312 Pressure ulcer of right buttock, stage 2; D63.8 Anemia in other chronic diseases classified elsewhere; I11.0 Hypertensive heart disease with heart failure; I50.32 Chronic diastolic (congestive) heart failure; I48.2 Chronic atrial fibrillation; R62.7 Adult failure to thrive; E86.0 Dehydration; R19.5 Other fecal abnormalities; R74.0 Nonspecific elevation of levels of transaminase and lactic acid dehydrogenase [LDH]; R79.89 Other specified abnormal findings of blood chemistry; E11.40 Type 2 diabetes mellitus with diabetic neuropathy, unspecified; E78.5 Hyperlipidemia, unspecified; B96.89 Other specified bacterial agents as the cause of diseases classified elsewhere; Z16.24 Resistance to multiple antibiotics; K25.9 Gastric ulcer, unspecified as acute or chronic, without hemorrhage or perforation; I25.10 Atherosclerotic heart disease of native coronary artery without angina pectoris; J44.9 Chronic obstructive pulmonary disease, unspecified; G47.33 Obstructive sleep apnea (adult) (pediatric); G89.29 Other chronic pain; L30.9 Dermatitis, unspecified; I87.2 Venous insufficiency (chronic) (peripheral); F32.9 Major depressive disorder, single episode, unspecified; N40.0 Benign prostatic hyperplasia without lower urinary tract symptoms; E66.01 Morbid (severe) obesity due to excess calories; Z68.32 Body mass index [BMI] 32.0-32.9, adult; Z86.73 Personal history of transient ischemic attack (TIA), and cerebral infarction without residual deficits; Z79.01 Long term (current) use of anticoagulants; Z87.891 Personal history of nicotine dependence; Z79.4 Long term (current) use of insulin; Z86.718 Personal history of other venous thrombosis and embolism; Z87.442 Personal history of urinary calculi
CPT/HCPCS: 74176; 76705; 77012; 80053; 80074; 80162; 81003; 82607; 82728; 82746; 82948; 83540; 83735; 84443; 84466; 85014; 85018; 85025; 85027; 85045; 85610; 85730; 86038; 86803; 87077; 87086; 87186; 88305; 88342 TC; 93005; 94640; 94640 76; 97530 GP; 99281; 99285; A6260; C1769; C1876; C9113; G0378; J0330; J0692; J0696; J1100; J1815; J2405; J3010; J7030; J7050

== ENCOUNTER 2017-04-18 23:34 | Inpatient (IN) | payer OTHER ==
[~2017-04-18] VITALS: Ht 182.9 cm; Wt 77.1 kg
[~2017-04-18 23:34] MED LIST changes: +BACLOFEN10 MG PO; +CARDIZEM CD PO; +CARTIA XT120 MG PO; +CEFEPIME HCL1 GM IM; +COUMADIN1 MG PO; +CYCLOBENZAPRINE5 MG PO; +FENTANYL1 EAC5 TD; +GABAPENTIN600 MG PO; +TAMSULOSIN HCL0.4 MG PO; +WARFARIN SODIUM2 MG PO
[2017-04-19 00:22] LABS: MCH 33.9 PG (29.0-34.0); MCHC 32.7 G/DL (30.0-36.0); MCV 103.6 FL (86-99); PLATELET COUNT 139 K/uL (156-360); RBC DIS.WIDTH-SD 57.4 % (39-53); RED BLOOD COUNT 2.51 M/uL (4.00-5.50)
[2017-04-19 00:32] LABS: CHLORIDE 103 mEq/L (99-109); POTASSIUM 4.2 mEq/L (3.7-5.4); SODIUM 135 mEq/L (136-147)
[2017-04-19 00:34] LABS: GLUCOSE 117 mg/dL (70-99)
[2017-04-19 00:35] LABS: ANION GAP 3 MEQ/L (2-14)
[2017-04-19 00:36] LABS: TOTAL BILIRUBIN 0.5 mg/dL (0.0-1.0)
[2017-04-19 00:37] LABS: ALKALINE PHOSPHATASE 174 IU/L (3-129)
[2017-04-19 00:38] LABS: GFR ESTIMATE (CALCULATED) > 59 mL/min/
[2017-04-19 00:39] LABS: UREA NITROGEN (BUN) 46 mg/dL (9-23)
[2017-04-19 00:41] LABS: LIPASE 30 U/L (1.0-51.0)
[2017-04-19 00:42] LABS: TROP-I INTERPRETATION NEGATIVE; TROPONIN-I < 0.01 ng/mL (0.0-0.30)
[2017-04-19 00:47] LABS: DIGOXIN 1.3 ng/mL (0.8-2.0)
[2017-04-19 02:22] LABS: ADD MIUA? YES; BILIRUBIN NEGATIVE; BLOOD NEGATIVE; COLOR YELLOW ((YELLOW)); GLUCOSE (STRIP) NEGATIVE; KETONES NEGATIVE; LEUKOCYTES LARGE; NITRITE POSITIVE; PROTEIN (STRIP) 100; UROBILINOGEN 0.2 MG/DL (0.2-1.0)
[2017-04-19 02:25] LABS: INTER. NORMALIZED RATIO 2.2; PROTHROMBIN TIME 25.1 SEC (10.2-12.9)
[2017-04-19 02:28] LABS: PTT 35.9 SEC (25-37)
[2017-04-19 02:32] LABS: BACTERIA RARE /HPF; EPITHELIAL CELLS RARE /HPF; MUCUS TRACE /LPF; UCUL ADDED? NO; WHITE BLOOD CELLS 0-5 /HPF (0-5)
[2017-04-19 10:42] VITALS: BP 111/59
[2017-04-19 11:55] VITALS: BP 111/59
[2017-04-19 12:52] VITALS: BP 108/55
[2017-04-19] MEDS ORDERED: COUMADIN4 MG PO (15:34)
[2017-04-19] MEDS ORDERED: PROTONIX40 M1 PO (15:37)
[2017-04-19] MEDS ORDERED: FERROUS SULFAT325 MG PO (15:39)
[2017-04-19] MEDS ORDERED: COUMADIN1 MG PO (16:58)
[2017-04-19] MEDS ORDERED: HYDROCODON-ACE1 EAC9 PO (16:58)
[2017-04-19] MEDS ORDERED: ALBUTEROL0.63 MG/3 IH (16:58)
[2017-04-19 19:52] VITALS: BP 109/58
[2017-04-20] VITALS (7 sets, daily range): BP systolic 99–136; BP diastolic 51–70
[2017-04-20 11:41] LABS: POINT-OF-CARE METER ID UU14162508
[2017-04-20 12:31] LABS: POINT-OF-CARE METER ID UU14162508; POINT-OF-CARE USER ID STWLMB34
[2017-04-20 15:30] LABS: POINT-OF-CARE METER ID UU14162508
[2017-04-20 16:43] LABS: INTER. NORMALIZED RATIO 2.9; PROTHROMBIN TIME 32.8 SEC (10.2-12.9)
[2017-04-20 21:37] LABS: POINT-OF-CARE METER ID UU14162508
[2017-04-21 03:40] VITALS: BP 101/55
[2017-04-21 06:39] LABS: POINT-OF-CARE METER ID UU14162508
[2017-04-21 07:58] LABS: INTER. NORMALIZED RATIO 2.7; PROTHROMBIN TIME 30.8 SEC (10.2-12.9)
[2017-04-21 08:51] VITALS: BP 106/55
[2017-04-21 12:30] LABS: POINT-OF-CARE METER ID UU14162508
[2017-04-21 13:41] VITALS: BP 107/54
[2017-04-21 16:48] VITALS: BP 112/52
[2017-04-21 16:49] LABS: POINT-OF-CARE METER ID UU14162508
[2017-04-21 19:48] VITALS: BP 100/52
[2017-04-21 21:49] LABS: POINT-OF-CARE METER ID UU14162508
[2017-04-21 23:29] VITALS: BP 100/49
[2017-04-22 06:27] LABS: POINT-OF-CARE METER ID UU14208750
[2017-04-22 06:42] LABS: EOSINOPHIL (%) 2.3 % (0-5); EOSINOPHIL COUNT 0.1 K/uL (0-0.3); HEMATOCRIT 24.8 % (38.0-50.0); IMMATURE GRANULOCYTE (%) 0.3 % (0.0-0.7); INSTRUMENT ABS NEUTROPHIL CT 2.3 K/uL; LYMPHOCYTE COUNT 0.8 K/uL (1.0-2.8); MCH 33.2 PG (29.0-34.0); MCHC 31.9 G/DL (30.0-36.0); MCV 104.2 FL (86-99); MEAN PLAT.VOLUME 9.9 uM^3 (9.0-12.4); MONOCYTE (%) 7.3 % (3-12); MONOCYTE COUNT 0.3 K/uL (0-0.8); NEUTROPHIL (%) 66.6 % (45-76); NEUTROPHIL COUNT 2.3 K/uL (1.8-6.4); PLATELET COUNT 129 K/uL (156-360); RBC DIS.WIDTH-SD 58.1 % (39-53); RED BLOOD COUNT 2.38 M/uL (4.00-5.50); WHITE BLOOD COUNT 3.4 K/uL (4.1-10.2)
[2017-04-22 07:12] LABS: INTER. NORMALIZED RATIO 2.2; PROTHROMBIN TIME 25.1 SEC (10.2-12.9)
[2017-04-22 07:20] LABS: ANION GAP 5 MEQ/L (2-14); CHLORIDE 111 MEQ/L (99-109); GFR ESTIMATE (CALCULATED) > 59 mL/min/; GLUCOSE 90 mg/dL (70-99); POTASSIUM 4.2 MEQ/L (3.7-5.4); SAMPLE HEMOLYSIS CHECK 0; SAMPLE ICTERIC CHECK 0; SAMPLE LIPEMIA CHECK 0
[2017-04-22 07:21] LABS: SODIUM 142 MEQ/L (136-147); UREA NITROGEN (BUN) 18 mg/dL (9-23)
[2017-04-22 09:34] VITALS: BP 99/56
[2017-04-22 11:53] LABS: POINT-OF-CARE METER ID UU14162508
[2017-04-22 16:45] LABS: POINT-OF-CARE METER ID UU14208750
[2017-04-22 17:13] VITALS: BP 107/56
[2017-04-22 21:36] LABS: POINT-OF-CARE METER ID UU14314084
[2017-04-22 23:34] VITALS: BP 112/53
[2017-04-23 06:32] LABS: POINT-OF-CARE METER ID UU14314084
[2017-04-23 07:03] LABS: EOSINOPHIL (%) 3.9 % (0-5); EOSINOPHIL COUNT 0.1 K/uL (0-0.3); HEMATOCRIT 25.6 % (38.0-50.0); IMMATURE GRANULOCYTE (%) 0.3 % (0.0-0.7); INSTRUMENT ABS NEUTROPHIL CT 2.4 K/uL; LYMPHOCYTE COUNT 0.8 K/uL (1.0-2.8); MCH 33.1 PG (29.0-34.0); MCHC 31.6 G/DL (30.0-36.0); MCV 104.5 FL (86-99); MEAN PLAT.VOLUME 8.8 uM^3 (9.0-12.4); MONOCYTE (%) 7.4 % (3-12); MONOCYTE COUNT 0.3 K/uL (0-0.8); NEUTROPHIL (%) 65.5 % (45-76); NEUTROPHIL COUNT 2.4 K/uL (1.8-6.4); PLATELET COUNT 126 K/uL (156-360); RBC DIS.WIDTH-SD 57.9 % (39-53); RED BLOOD COUNT 2.45 M/uL (4.00-5.50); WHITE BLOOD COUNT 3.6 K/uL (4.1-10.2)
[2017-04-23 07:16] LABS: INTER. NORMALIZED RATIO 2.2; PROTHROMBIN TIME 25.1 SEC (10.2-12.9)
[2017-04-23 07:20] VITALS: BP 133/58
[2017-04-23 07:27] LABS: ANION GAP 6 MEQ/L (2-14); CHLORIDE 109 MEQ/L (99-109); GFR ESTIMATE (CALCULATED) > 59 mL/min/; GLUCOSE 80 mg/dL (70-99); POTASSIUM 4.3 MEQ/L (3.7-5.4); SAMPLE HEMOLYSIS CHECK 0; SAMPLE ICTERIC CHECK 0; SAMPLE LIPEMIA CHECK 0; SODIUM 143 MEQ/L (136-147); UREA NITROGEN (BUN) 16 mg/dL (9-23)
[2017-04-23 11:59] LABS: POINT-OF-CARE METER ID UU14314084
[2017-04-23] MEDS ORDERED: COUMADIN1 MG PO (13:03)
[2017-04-23] MEDS ORDERED: HYDROCODON-ACE1 EAC9 PO (13:05)
[2017-04-23] MEDS ORDERED: CEFTIN500 MG PO (13:05)
[2017-04-23] MEDS ORDERED: NOVOLOG PE100 UNITS/ SC (13:05)
[2017-04-23 16:55] LABS: POINT-OF-CARE METER ID UU14208750
[2017-04-23 17:00] VITALS: BP 124/56
== END 2017-04-23 17:44 | DRG 694 ==
LOC: EME 23:34 → EDOF 04-19 03:13 → 2EAST 04-19 03:13 → ENRESERV 04-19 03:14 → 2EAST 04-19 12:33
PROVIDERS: Emergency Medicine; Family Medicine; Urology
DX: N13.1 Hydronephrosis with ureteral stricture, not elsewhere classified (principal); D63.8 Anemia in other chronic diseases classified elsewhere; N39.0 Urinary tract infection, site not specified; N20.2 Calculus of kidney with calculus of ureter; E66.01 Morbid (severe) obesity due to excess calories; I50.32 Chronic diastolic (congestive) heart failure; I48.2 Chronic atrial fibrillation; G47.33 Obstructive sleep apnea (adult) (pediatric); I11.0 Hypertensive heart disease with heart failure; D70.9 Neutropenia, unspecified; E11.40 Type 2 diabetes mellitus with diabetic neuropathy, unspecified; E78.5 Hyperlipidemia, unspecified; N40.0 Benign prostatic hyperplasia without lower urinary tract symptoms; E87.1 Hypo-osmolality and hyponatremia; G89.29 Other chronic pain; I83.12 Varicose veins of left lower extremity with inflammation; I83.11 Varicose veins of right lower extremity with inflammation; Z68.37 Body mass index [BMI] 37.0-37.9, adult; K42.9 Umbilical hernia without obstruction or gangrene; D69.6 Thrombocytopenia, unspecified; Z79.4 Long term (current) use of insulin; Z86.718 Personal history of other venous thrombosis and embolism; Z87.891 Personal history of nicotine dependence; Z87.11 Personal history of peptic ulcer disease; Z82.49 Family history of ischemic heart disease and other diseases of the circulatory system; Z87.442 Personal history of urinary calculi
CPT/HCPCS: 74176; 80048; 80053; 80162; 81003; 82948; 83690; 84484; 85025; 85027; 85610; 85730; 93005; 94640; 94640 76; 99202; 99281; 99285; J0696; J1170; J1815; J7030

== ENCOUNTER 2017-05-30 07:52 | Day surgery (SDC) | payer OTHER ==
[~2017-05-30] VITALS: Ht 180.3 cm; Wt 96.1 kg
[~2017-05-30 07:52] MED LIST changes: +ALBUTEROL0.63 MG/3 IH; +COUMADIN2.5 MG PO; +COUMADIN4 MG PO; +FERROUS SULFAT325 MG PO; +FLEET ENEMA-AD118 ML PR; +FLEXERIL5 MG PO; +GLUCOSE GEL38 GM PO; +PROTONIX40 M1 PO; +TUMS FRESHERS200 MG PO
[2017-05-30 08:58] LABS: INTER. NORMALIZED RATIO 1.4
[2017-05-30 09:01] VITALS: BP 107/65
[2017-05-30 11:48] VITALS: BP 100/44
[2017-05-30 12:45] VITALS: BP 104/58
[2017-05-30 13:59] VITALS: BP 106/50
== END 2017-05-30 14:06 ==
LOC: SDC 07:52
PROVIDERS: Urology
DX: N13.2 Hydronephrosis with renal and ureteral calculous obstruction (principal); N39.0 Urinary tract infection, site not specified; I11.0 Hypertensive heart disease with heart failure; I50.9 Heart failure, unspecified; I48.91 Unspecified atrial fibrillation; K21.9 Gastro-esophageal reflux disease without esophagitis; Z87.891 Personal history of nicotine dependence; Z79.01 Long term (current) use of anticoagulants
CPT/HCPCS: 74018; 74420; 82365 90; 82948; 85610; 87641; C1769; C2625; J0690; J1100; J1170; J1885; J2405; J3010

== ENCOUNTER 2017-08-24 15:15 | Emergency (ER) | payer OTHER ==
[~2017-08-24] VITALS: Ht 182.9 cm; Wt 96.3 kg
[2017-08-24 15:32] VITALS: BP 112/63
[2017-08-24] MEDS ORDERED: LEVAQUIN750 MG PO (17:13)
== END 2017-08-24 20:03 ==
LOC: EME 15:15
DX: Z04.3 Encounter for examination and observation following other accident (principal); J18.9 Pneumonia, unspecified organism; J44.0 Chronic obstructive pulmonary disease with (acute) lower respiratory infection; M25.511 Pain in right shoulder; W04.XXXA Fall while being carried or supported by other persons, initial encounter; I11.0 Hypertensive heart disease with heart failure; I50.9 Heart failure, unspecified; E11.9 Type 2 diabetes mellitus without complications; Z79.4 Long term (current) use of insulin; Z79.01 Long term (current) use of anticoagulants; F32.9 Major depressive disorder, single episode, unspecified; Z88.2 Allergy status to sulfonamides; Z87.891 Personal history of nicotine dependence
CPT/HCPCS: 70450; 73030